=== PATIENT | female | born 1955 | race Caucasian/White ===

== ENCOUNTER 2022-01-24 12:34 | Outpatient (CLI) | payer MEDICARE ==
[2022-01-24] MEDS ORDERED: Iopamidol-370 76% 500 ML 1 ML ONE (15:35)
== END 2022-01-24 12:35 | disposition home or self-care (01) ==
LOC: BICCT 12:34
PROVIDERS: ATTEND Internal Medicine Cardiovascular Disease
DX: E04.1 Nontoxic single thyroid nodule (principal)
CPT/HCPCS: 70491; 82565; Q9967